=== PATIENT | male | born 1980 | race Caucasian/White ===

== ENCOUNTER 2020-04-13 04:54 | Emergency (ER) | payer OTHER ==
[~2020-04-13] VITALS: Ht 180.3 cm; Wt 86.4 kg
[2020-04-13 05:40] LABS: HEMATOCRIT 45.2 % (42.0-52.0); HEMOGLOBIN 14.9 g/dl (13.5-17.5); MEAN CORPUSCULAR HEMOGLOBIN 29.9 pg (27.0-33.0); MEAN CORPUSCULAR VOLUME 90.6 fl (80.0-96.0); PLATELET COUNT, AUTOMATED 300 10^3/uL (150-450); RED BLOOD COUNT 4.99 10^6/uL (4.30-6.10); WHITE BLOOD COUNT 5.8 10^3/uL (4.0-10.0)
[2020-04-13 06:10] LABS: AMPHETAMINES LEVEL URINE NEGATIVE (NEGATIVE); BARBITURATES URINE NEGATIVE (NEGATIVE); BENZODIAZEPINES URINE NEGATIVE (NEGATIVE); CANNABINOIDS URINE NEGATIVE (NEGATIVE); COCAINE METABOLITE URINE NEGATIVE (NEGATIVE); METHADONE URINE NEGATIVE (NEGATIVE); OPIATES URINE NEGATIVE (NEGATIVE); PHENCYCLIDINE URINE NEGATIVE (NEGATIVE)
[2020-04-13 06:17] LABS: ACETAMINOPHEN LEVEL < 2.0 UG/ML (10.0-30.0); ALBUMIN 4.3 GM/DL (3.2-5.2); ALT/SGPT 73 U/L (12-78); BILIRUBIN,DIRECT < 0.1 MG/DL (0.0-0.2); BILIRUBIN,TOTAL 0.3 MG/DL (0.2-1.0); BLOOD UREA NITROGEN 7 MG/DL (7-18); CALCIUM LEVEL 8.7 MG/DL (8.5-10.1); CARBON DIOXIDE LEVEL 21 MEQ/L (21-32); CHLORIDE LEVEL 112 MEQ/L (98-107); CREATININE FOR GFR 1.13 MG/DL (0.70-1.30); ETHYL ALCOHOL (ETHANOL) 0.217 % (0.000-0.010); GLOMERULAR FILTRATION RATE > 60.0 (>60); GLUCOSE, FASTING 98 MG/DL (70-100); POTASSIUM SERUM 4.1 MEQ/L (3.5-5.1); SALICYLATE LEVEL < 1.7 MG/DL (5.0-30.0); SODIUM LEVEL 144 MEQ/L (136-145); TOTAL PROTEIN 7.8 GM/DL (6.4-8.2)
--- NOTE | 2020-04-13 07:54 | ED PDOC ---
Post-Departure Follow-Up 39yo M with a history of asthma, alcohol abuse and HTN presents with alcohol int oxication. Per the ED Kun RODRIGUEZ, the patient was drinking and had an argument with his . He was later found by the police and brought here for an evaulation. The patient denies AVH, SI/HI, or any symptoms/injuries. He has a flat affect, but his exam is otherwise unremarkable. He has no signs of trauma, and is afebrile, hemodynamically stable and nontoxic appearing. His symptoms are most like due to alcohol intoxication. i have a lower suspicion for another metabolic process or infectious process. Labs were obtained, and notable for an elevated BENOIT. The patient was awaiting to be discharged safely at the time that I transferred his care to Dr. Day. The plan a the time of sign out was to discharge the patient at 11am or in the care of his . DEN JEWELL MD Apr 13, 2020 07:54
[2020-04-13 08:40] VITALS: BP 147/92
== END 2020-04-13 08:41 | disposition home or self-care (01) ==
LOC: M ED 04:54
DX: F10.129 Alcohol abuse with intoxication, unspecified (principal); Y90.1 Blood alcohol level of 20-39 mg/100 ml; J45.909 Unspecified asthma, uncomplicated; I10 Essential (primary) hypertension
CPT/HCPCS: 36415; 80048; 80076; 80307; 84443; 85027; 99284; G0480